=== PATIENT | female | born 1995 | race Caucasian/White ===

== ENCOUNTER 2019-09-10 02:31 | Emergency (ER) | payer SELFPAY ==
[~2019-09-10] VITALS: Ht 165.1 cm; Wt 52.2 kg
[2019-09-10 02:38] VITALS: Ht 165.1 cm; Wt 52.2 kg
[2019-09-10 05:46] VITALS: BP 97/54
== END 2019-09-10 05:44 | disposition home or self-care (01) ==
LOC: ED 02:31
DX: F10.129 Alcohol abuse with intoxication, unspecified (principal); R11.10 Vomiting, unspecified